=== PATIENT | female | born 2000 | race American Indian/Alaskan Native ===

== ENCOUNTER 2018-03-23 20:44 | Emergency (ER) | payer MEDICAID ==
--- NOTE | 2018-03-24 00:52 | Emergency Department Report ---
- General Chief Complaint: Eye Problems Stated Complaint: LT EYE PINK EYE/LUMP IN NECK VOMITING Time Seen by Provider: 03/24/18 00:41 Source: patient Mode of arrival: Ambulatory Limitations: No Limitations - History of Present Illness Initial Comments: There is a 17-year-old -[place] female presents for URI symptoms postnasal drip sore throat and ear pain left eye irritation and redness primary symptom is dysphagia or throat pain states tonsillar swelling with exudate pain is 4/10 with nocturnal fever worse at night is no MAXIMUM TEMPERATURE this patient has not taken temperature however tendinitis 99.3 in triage current symptoms are exacerbated by movement and swallowing, secondary complaint states contact percussion with pink eye 2 days ago MD Complaint: fever, cough (postnasal drip is clear), sore throat, rhinorrhea, nasal congestion, sinus pain Onset/Timin -: days(s) Severity: moderate Severity scale (0 -10): 5 Quality: aching Consistency: intermittent Improves With: nothing Worsens With: activity Context: sick contacts (she will) Associated Symptoms: fever, chills, headache, rhinorrhea, nasal congestion, sore throat, cough, nausea, dysuria, ear pain Treatments Prior to Arrival: none - Related Data Previous Rx's Medication Instructions Recorded Last Taken Type Amoxicillin/Potassium Clav 1 each PO BID #20 tablet 03/24/18 Unknown Rx [Augmentin 875-125 Tablet] Benzocaine/Menth/Cetylpyrd 8 each MM Q2H #3 packet 03/24/18 Unknown Rx [Cepacol X Strength] Dexamethasone [Decadron] 4 mg PO Q12H #4 tablet 03/24/18 Unknown Rx Ibuprofen 800 mg PO TID PRN #30 tablet 03/24/18 Unknown Rx Allergies Allergy/AdvReac Type Severity Reaction Status Date / Time No Known Allergies Allergy Unverified 03/23/18 21:24 ED Review of Systems ROS: Stated complaint: LT EYE PINK EYE/LUMP IN NECK VOMITING Other details as noted in HPI Constitutional: chills, fever Eyes: eye pain, eye discharge ENT: congestion. denies: ear pain, throat pain Respiratory: denies: cough, shortness of breath, wheezing Cardiovascular: denies: chest pain, palpitations Endocrine: no symptoms reported Gastrointestinal: nausea Genitourinary: denies: urgency, dysuria, discharge Musculoskeletal: denies: back pain, joint swelling, arthralgia Skin: denies: rash, lesions Neurological: denies: headache, weakness, paresthesias Psychiatric: denies: anxiety, depression Hematological/Lymphatic: denies: easy bleeding, easy bruising ED Past Medical Hx - Past Medical History Previous Medical History?: No - Surgical History Past Surgical History?: No - Social History Smoking Status: Never Smoker Substance Use Type: Marijuana - Medications Home Medications: Home Medications Medication Instructions Recorded Confirmed Last Taken Type Amoxicillin/Potassium Clav 1 each PO BID #20 tablet 03/24/18 Unknown Rx [Augmentin 875-125 Tablet] Benzocaine/Menth/Cetylpyrd 8 each MM Q2H #3 packet 03/24/18 Unknown Rx [Cepacol X Strength] Dexamethasone [Decadron] 4 mg PO Q12H #4 tablet 03/24/18 Unknown Rx Ibuprofen 800 mg PO TID PRN #30 tablet 03/24/18 Unknown Rx ED Physical Exam - General Limitations: No Limitations General appearance: alert, in no apparent distress - Head Head exam: Present: atraumatic, normocephalic - Eye Eye exam: Present: normal appearance, PERRL, EOMI, conjunctival injection (left ) - ENT ENT exam: Present: mucous membranes moist - Expanded ENT Exam Expanded TM/Canal exam: Erythema: Right TM, Canal Tenderness: Right TM, Left TM Mouth exam: Absent: trismus Teeth exam: Present: normal inspection Throat exam: Positive: tonsillar erythema, tonsillomegaly, tonsillar exudate. Negative: R peritonsillar mass, L peritonsillar mass - Neck Neck exam: Present: normal inspection, full ROM, lymphadenopathy (left cervicle ). Absent: thyromegaly - Respiratory Respiratory exam: Present: normal lung sounds bilaterally. Absent: respiratory distress, wheezes, stridor, chest wall tenderness - Cardiovascular Cardiovascular Exam: Present: regular rate, normal rhythm, normal heart sounds. Absent: systolic murmur, diastolic murmur, rubs, gallop - GI/Abdominal GI/Abdominal exam: Present: soft, normal bowel sounds. Absent: tenderness, bruit, hernia - Rectal Rectal exam: Present: deferred - Extremities Exam Extremities exam: Present: normal inspection, full ROM, normal capillary refill - Back Exam Back exam: Present: normal inspection, full ROM. Absent: tenderness - Neurological Exam Neurological exam: Present: alert, oriented X3 - Psychiatric Psychiatric exam: Present: normal affect, normal mood - Skin Skin exam: Present: warm, dry, intact, normal color. Absent: rash ED Course Vital Signs 03/23/18 21:05 Temperature 99.3 F Pulse Rate 99 H Respiratory 16 Rate Blood Pressure 113/51 O2 Sat by Pulse 100 Oximetry ED Medical Decision Making - Medical Decision Making This is sinusitis with conjunctivitis left plan Augmentin surgeon ibuprofen and Cepacol lozenges Polytrim for left eye patient will follow up with ophthalmology in 2-3 days patient will follow with PCP as [facility] patient verbalized agreement and understanding with same patient for DC' d home in stable condition at this time , throat was checked there is no stridor no wheezing airway is patent . Uvula remains midline Critical care attestation.: If time is entered above; I have spent that time in minutes in the direct care of this critically ill patient, excluding procedure time. ED Disposition Clinical Impression: URI (upper respiratory infection) Qualifiers: URI type: unspecified viral URI Qualified Code(s): J06.9 - Acute upper respiratory infection, unspecified Sinusitis Qualifiers: Sinusitis location: maxillary Chronicity: acute Recurrence: non-recurrent Qualified Code(s): J01.00 - Acute maxillary sinusitis, unspecified Conjunctivitis Qualifiers: Conjunctivitis type: acute Acute conjunctivitis type: bacterial Laterality: left Qualified Code(s): H10.32 - Unspecified acute conjunctivitis, left eye Disposition: DC-01 TO HOME OR SELFCARE Is pt being admited?: No Does the pt Need Aspirin: No Condition: Good Instructions: Conjunctivitis (ED), Sinusitis (ED), Upper Respiratory Infection (ED) Prescriptions: Amoxicillin/Potassium Clav [Augmentin 875-125 Tablet] 1 each PO BID #20 tablet Benzocaine/Menth/Cetylpyrd [Cepacol X Strength] 8 each MM Q2H #3 packet Dexamethasone [Decadron] 4 mg PO Q12H #4 tablet Ibuprofen 800 mg PO TID PRN #30 tablet PRN Reason: pain fever Referrals: PRIMARY CARE,MD [Primary Care Provider] - 3-5 Days Forms: Work/School Release Form(ED) Time of Disposition: 00:59
[2018-03-24 01:19] VITALS: BP 101/61
== END 2018-03-24 01:18 | disposition home or self-care (01) ==
LOC: ED 20:44
DX: J06.9 Acute upper respiratory infection, unspecified (principal); J01.00 Acute maxillary sinusitis, unspecified; H10.32 Unspecified acute conjunctivitis, left eye; F12.90 Cannabis use, unspecified, uncomplicated
CPT/HCPCS: 99282